=== PATIENT | female | born 1940 | race Caucasian/White ===

== ENCOUNTER → 2017-11-23 | Outpatient (CLI) | payer OTHER ==
[~2017-11-23] MED LIST: ASPI81TA27 PO; CALC-437 OR; CELE200C PO; COEN400C8 OR; SIMV40TA96 PO
[2017-11-23 11:39] LABS: Basophils # (auto) 0.1 uL; Basophils % (auto) 1.5 % (0.0-2.0); Eosinophils # (auto) 0.2 uL; Eosinophils % (auto) 4.4 % (0.0-7.0); Hematocrit 43.6 % (36.0-46.0); Hemoglobin 14.5 g/dL (12.2-16.2); Lymphocytes % (auto) 21.4 % (10.0-50.0); Mean Corpuscular Hemoglobin 31.2 pg (28.0-32.0); Mean Corpuscular Hgb Conc. 33.3 g/dL (32.0-36.0); Mean Corpuscular Volume 93.8 fL (80.0-100.0); Monocytes # (auto) 0.4 uL; Monocytes % (auto) 7.7 % (0.0-12.0); Platelet Count (auto) 272 10^3/uL (140-450); Red Blood Cells 4.65 10^6/uL (4.0-5.20); Red Cell Distribution Width 12.3 % (11.8-14.3); White Blood Cell 4.6 10^3/uL (4.4-10.8)
[2017-11-23 12:08] LABS: Albumin 3.9 g/dL (3.4-5.0); BUN/Creatinine Ratio 32.4; Bilirubin, Total 0.7 mg/dL (0.2-1.0); Calcium 9.3 mg/dL (8.5-10.1); Potassium 3.8 mmol/L (3.5-5.1); Total Protein 7.1 g/dL (6.4-8.2)
[2017-11-23 12:14] LABS: Urine Bacteria NONE SEEN /hpf (None Seen); Urine Blood Negative /uL (Negative); Urine Mucus FEW (None Seen); Urine Specific Gravity 1.029 (1.001-1.035); Urine WBC 2 /hpf (0 - 5)
== END | disposition home or self-care (01) ==
LOC: LAB 11:20
PROVIDERS: ATTEND Family Medicine
DX: E78.2 Mixed hyperlipidemia (principal); M19.90 Unspecified osteoarthritis, unspecified site
CPT/HCPCS: 36415; 80053; 80061; 81001; 82306; 82607; 84443; 85025

== ENCOUNTER → 2018-11-26 | Outpatient (CLI) | payer OTHER ==
[2018-11-26 10:18] LABS: Basophils # (auto) 0.1 uL; Basophils % (auto) 1.3 % (0.0-2.0); Eosinophils # (auto) 0.2 uL; Eosinophils % (auto) 3.4 % (0.0-7.0); Hematocrit 41.6 % (36.0-46.0); Lymphocytes # (auto) 1.2 uL; Lymphocytes % (auto) 25.9 % (10.0-50.0); Mean Corpuscular Hemoglobin 31.5 pg (28.0-32.0); Mean Corpuscular Hgb Conc. 33.7 g/dL (32.0-36.0); Mean Corpuscular Volume 93.6 fL (80.0-100.0); Monocytes # (auto) 0.5 uL; Neutrophils # (auto) 2.8 uL; Neutrophils % (auto) 59.4 % (37.0-80.0); Platelet Count (auto) 244 10^3/uL (140-450); Red Blood Cells 4.45 10^6/uL (4.0-5.20); Red Cell Distribution Width 12.8 % (11.8-14.3); White Blood Cell 4.7 10^3/uL (4.4-10.8)
[2018-11-26 10:21] LABS: Urine Bacteria NONE SEEN /hpf (None Seen); Urine Blood Negative /uL (Negative); Urine Specific Gravity 1.011 (1.001-1.035); Urine WBC <1 /hpf (0 - 5)
[2018-11-26 10:34] LABS: Albumin 3.7 g/dL (3.4-5.0); Calcium 9.2 mg/dL (8.5-10.1); Potassium 3.7 mmol/L (3.5-5.1)
[2018-11-26 10:40] LABS: BUN/Creatinine Ratio 26.7; Bilirubin, Total 0.6 mg/dL (0.2-1.0); Total Protein 6.8 g/dL (6.4-8.2)
== END | disposition home or self-care (01) ==
LOC: LAB 09:56
PROVIDERS: ATTEND Family Medicine
DX: E55.9 Vitamin D deficiency, unspecified (principal); I10 Essential (primary) hypertension; E78.2 Mixed hyperlipidemia; M17.0 Bilateral primary osteoarthritis of knee; M81.0 Age-related osteoporosis without current pathological fracture
CPT/HCPCS: 36415; 80053; 80061; 81001; 82306; 84443; 85025

== ENCOUNTER → 2020-03-18 | Outpatient (CLI) | payer OTHER ==
[~2020-03-18] MED LIST changes: +ASPI-404 PO; -ASPI81TA27 PO
[2020-03-18 11:46] LABS: Basophils # (auto) 0.1 10 ^3/uL (0-0.2); Basophils % (auto) 1.7 % (0.0-2.0); Eosinophils # (auto) 0.1 10 ^3/uL (0-0.8); Eosinophils % (auto) 2.7 % (0.0-7.0); Hematocrit 41.9 % (36.0-46.0); Lymphocytes % (auto) 19.6 % (10.0-50.0); Mean Corpuscular Hemoglobin 31.6 pg (28.0-32.0); Mean Corpuscular Hgb Conc. 33.3 g/dL (32.0-36.0); Mean Corpuscular Volume 94.9 fL (80.0-100.0); Monocytes # (auto) 0.4 10 ^3/uL (0-1.3); Monocytes % (auto) 8.2 % (0.0-12.0); Neutrophils # (auto) 3.6 10 ^3/uL (1.6-8.6); Neutrophils % (auto) 67.8 % (37.0-80.0); Nucleated Red Blood Cells % 0.1 %; Platelet Count (auto) 250 10^3/uL (140-450); Red Blood Cells 4.42 10^6/uL (4.0-5.20); Red Cell Distribution Width 12.7 % (11.8-14.3); White Blood Cell 5.3 10^3/uL (4.4-10.8)
[2020-03-18 11:59] LABS: Urine Bacteria NONE SEEN /hpf (None Seen); Urine Blood Negative /uL (Negative); Urine Hyaline Cast FEW /lpf (0 - 2); Urine Mucus FEW (None Seen); Urine Specific Gravity 1.012 (1.001-1.035); Urine WBC 4 /hpf (0 - 5)
[2020-03-18 12:52] LABS: Albumin 3.6 g/dL (3.4-5.0)
[2020-03-18 13:00] LABS: BUN/Creatinine Ratio 18.5; Bilirubin, Total 0.7 mg/dL (0.2-1.0); Calcium 9.8 mg/dL (8.5-10.1); Total Protein 7.1 g/dL (6.4-8.2)
== END | disposition home or self-care (01) ==
LOC: LAB 11:22
PROVIDERS: ATTEND Family Medicine
DX: I10 Essential (primary) hypertension (principal); E55.9 Vitamin D deficiency, unspecified; E78.2 Mixed hyperlipidemia; M85.88 Other specified disorders of bone density and structure, other site
CPT/HCPCS: 36415; 80053; 80061; 81001; 82306; 84443; 85025

== ENCOUNTER → 2021-11-02 | Outpatient (CLI) | payer OTHER ==
[~2021-11-02] MED LIST changes: -ASPI-404 PO; +ASPI-543 PO; +SIMV40TA2 PO; -SIMV40TA96 PO
[2021-11-02 11:52] LABS: Albumin 3.7 g/dL (3.4-5.0); Calcium 9.4 mg/dL (8.5-10.1); Potassium 4.2 mmol/L (3.5-5.1)
[2021-11-02 12:01] LABS: Bilirubin, Total 0.7 mg/dL (0.2-1.0); Total Protein 6.8 g/dL (6.4-8.2)
[2021-11-02 14:32] LABS: Basophils # (auto) 0.1 10 ^3/uL (0-0.2); Basophils % (auto) 1.3 % (0.0-2.0); Eosinophils # (auto) 0.1 10 ^3/uL (0-0.8); Eosinophils % (auto) 2.2 % (0.0-7.0); Hematocrit 40.1 % (36.0-46.0); Hemoglobin 13.3 g/dL (12.2-16.2); Lymphocytes % (auto) 17.8 % (10.0-50.0); Mean Corpuscular Hemoglobin 31.1 pg (28.0-32.0); Mean Corpuscular Hgb Conc. 33.3 g/dL (32.0-36.0); Mean Corpuscular Volume 93.4 fL (80.0-100.0); Monocytes # (auto) 0.5 10 ^3/uL (0-1.3); Monocytes % (auto) 8.2 % (0.0-12.0); Neutrophils # (auto) 4.1 10 ^3/uL (1.6-8.6); Neutrophils % (auto) 70.5 % (37.0-80.0); Nucleated Red Blood Cells % 0.1 %; Red Blood Cells 4.29 10^6/uL (4.0-5.20); Red Cell Distribution Width 12.3 % (11.8-14.3); White Blood Cell 5.8 10^3/uL (4.4-10.8)
== END | disposition home or self-care (01) ==
LOC: LAB 10:07
PROVIDERS: ATTEND Student in an Organized Health Care Education/Training Program
DX: Z00.00 Encounter for general adult medical examination without abnormal findings (principal); E78.2 Mixed hyperlipidemia; I10 Essential (primary) hypertension
CPT/HCPCS: 36415; 80053; 80061; 83036; 85025

== ENCOUNTER 2022-04-11 21:03 | Emergency (ER) | payer OTHER ==
[~2022-04-11] VITALS: Ht 162.6 cm; Wt 56.8 kg
[2022-04-11 21:16] VITALS: BP 150/78
[2022-04-12] MEDS ORDERED: TETANUS-DIPTH-ACEL PERTUSSIS 0.5ML SYR Tdap IM ONE (01:00)
[2022-04-12] MEDS ORDERED: LIDOCAINE 1% HCL (LOCAL ANESTH.) INJ 20ML MDV IJ ONE (01:00)
[2022-04-12] MEDS ORDERED: CEPH-509 PO (01:45)
== END 2022-04-12 01:50 | disposition home or self-care (01) ==
LOC: ER 21:03
DX: S81.812A Laceration without foreign body, left lower leg, initial encounter (principal); M19.90 Unspecified osteoarthritis, unspecified site; E78.5 Hyperlipidemia, unspecified; Z90.49 Acquired absence of other specified parts of digestive tract; Z90.89 Acquired absence of other organs; W22.8XXA Striking against or struck by other objects, initial encounter; Y93.89 Activity, other specified; Y92.89 Other specified places as the place of occurrence of the external cause; Y99.8 Other external cause status
CPT/HCPCS: 12004; 90715; 99283; J2001

== ENCOUNTER → 2022-10-12 | Outpatient (CLI) | payer OTHER ==
[~2022-10-12] MED LIST changes: +CEPH-509 PO
[2022-10-12 11:21] LABS: Basophils # (auto) 0.1 10 ^3/uL (0-0.2); Basophils % (auto) 1.3 % (0.0-2.0); Eosinophils # (auto) 0.2 10 ^3/uL (0-0.8); Eosinophils % (auto) 3.5 % (0.0-7.0); Hematocrit 42.1 % (36.0-46.0); Hemoglobin 14.4 g/dL (12.2-16.2); Lymphocytes # (auto) 1.2 10 ^3/uL (0.4-5.4); Lymphocytes % (auto) 20.1 % (10.0-50.0); Mean Corpuscular Hgb Conc. 34.2 g/dL (32.0-36.0); Mean Corpuscular Volume 93.7 fL (80.0-100.0); Monocytes # (auto) 0.6 10 ^3/uL (0-1.3); Monocytes % (auto) 9.5 % (0.0-12.0); Neutrophils # (auto) 3.9 10 ^3/uL (1.6-8.6); Neutrophils % (auto) 65.6 % (37.0-80.0); Nucleated Red Blood Cells % 0.1 %; Red Blood Cells 4.49 10^6/uL (4.0-5.20); Red Cell Distribution Width 12.5 % (11.8-14.3)
[2022-10-12 12:20] LABS: Albumin 3.6 g/dL (3.4-5.0); Calcium 9.5 mg/dL (8.5-10.1); Potassium 4.3 mmol/L (3.5-5.1)
[2022-10-12 12:25] LABS: BUN/Creatinine Ratio 26.7; Bilirubin, Total 0.5 mg/dL (0.2-1.0)
== END | disposition home or self-care (01) ==
LOC: LAB 10:55
PROVIDERS: ATTEND Student in an Organized Health Care Education/Training Program
DX: I10 Essential (primary) hypertension (principal); E78.2 Mixed hyperlipidemia; M81.0 Age-related osteoporosis without current pathological fracture
CPT/HCPCS: 36415; 80053; 80061; 85025

== ENCOUNTER 2023-05-25 11:31 | Inpatient (IN) | payer OTHER ==
[~2023-05-25] VITALS: Ht 162.6 cm; Wt 68.0 kg
[~2023-05-25 11:31] MED LIST changes: -SIMV40TA2 PO; +SIMV40TA42 PO
[2023-05-25 11:55] VITALS: PULSE 78; RESP 20; O2SAT 95
[2023-05-25] MEDS ORDERED: ONDANSETRON HCL 4 MG/2 ML VIAL IV ONE (12:15)
[2023-05-25] MEDS ORDERED: MORPHINE SULFATE 4 MG/ML SYR/VIAL IV ONE (12:15)
[2023-05-25] MEDS ORDERED: SODIUM CHLORIDE 0.9% 1,000 ML IV ONE (12:15)
[2023-05-25 14:35] LABS: Urine Bacteria NONE SEEN /hpf (None Seen); Urine Blood Negative /uL (Negative); Urine Clarity Clear (Clear); Urine Color Yellow (Yellow); Urine Hyaline Cast FEW /lpf (0 - 2); Urine Protein, UAD TRACE (Negative); Urine Specific Gravity 1.028 (1.001-1.035); Urine Urobilinogen Normal (Negative); Urine WBC <1 /hpf (0 - 5); Urine pH 5.5 (5.0-8.0)
[2023-05-25] MEDS ORDERED: AMLO1TAB22 PO (14:54)
[2023-05-25] MEDS ORDERED: ACETAMINOPHEN 325 MG TAB PO PRN (15:00)
[2023-05-25] MEDS ORDERED: LORATADINE 10 MG TAB PO ONE (15:00)
[2023-05-25] MEDS ORDERED: ONDANSETRON HCL 4 MG/2 ML VIAL IV PRN (15:00)
[2023-05-25] MEDS ORDERED: HYDROcodone-ACET 5/325MG TAB PO PRN (15:00)
[2023-05-25] MEDS: SODIUM CHLORIDE 0.9% 1,000 ML IV SCH (15:13)
[2023-05-25] MEDS: MORPHINE SULFATE INJ 2 MG/ml SYRG IV PRN (18:08)
[2023-05-25 19:30] VITALS: PULSE 82; RESP 82; O2SAT 93
[2023-05-25] MEDS ORDERED: hydrALAZINE HCL 20 MG/ML VL IV PRN (21:15)
[2023-05-25] MEDS: DOCUSATE SOD 100 MG CAP PO PRN (21:58)
[2023-05-25] MEDS: ATORVASTATIN 20 MG TAB PO SCH (21:58)
[2023-05-25 22:00] VITALS: BP 142/88; PULSE 89; RESP 19; TEMP 99.1; O2SAT 95
[2023-05-25] MEDS ORDERED: ATORVASTATIN 20 MG TAB PO SCH (22:00)
[2023-05-25 22:03] VITALS: BP 142/88; PULSE 89; RESP 18; RESP 19; TEMP 99.1; O2SAT 95
[2023-05-26] MEDS: MORPHINE SULFATE INJ 2 MG/ml SYRG IV PRN ×2 (00:56→06:56)
[2023-05-26 05:00] VITALS: BP 144/85; PULSE 92; RESP 18; TEMP 99.9; O2SAT 94
[2023-05-26] MEDS: SODIUM CHLORIDE 0.9% 1,000 ML IV SCH (07:11)
[2023-05-26 07:25] LABS: Basophils # (auto) 0 10 ^3/uL (0-0.2); Basophils % (auto) 0.3 % (0.0-2.0); Eosinophils # (auto) 0 10 ^3/uL (0-0.8); Hematocrit 37.3 % (36.0-46.0); Hemoglobin 12.5 g/dL (12.2-16.2); Lymphocytes # (auto) 0.5 10 ^3/uL (0.4-5.4); Lymphocytes % (auto) 5.7 % (10.0-50.0); Mean Corpuscular Hemoglobin 32.3 pg (28.0-32.0); Mean Corpuscular Hgb Conc. 33.6 g/dL (32.0-36.0); Mean Corpuscular Volume 96.1 fL (80.0-100.0); Monocytes # (auto) 0.7 10 ^3/uL (0-1.3); Neutrophils # (auto) 7.7 10 ^3/uL (1.6-8.6); Red Blood Cells 3.88 10^6/uL (4.0-5.20); White Blood Cell 8.9 10^3/uL (4.4-10.8)
[2023-05-26 07:42] LABS: INR 1.05 (0.9-1.15); Partial Thromboplastin Time 28.8 SEC (24.5-34.5)
[2023-05-26 08:06] LABS: Alanine Aminotransferase 364 U/L (7-40); Albumin 4.1 g/dL (3.2-4.8); Alkaline Phosphatase 73 U/L (46-116); Aspartate Aminotransferase 276 U/L (13-40); BUN/Creatinine Ratio 23.2 (10.0-20.0); Blood Urea Nitrogen 19 mg/dL (9-23); Calcium 9.5 mg/dL (8.5-10.1); Carbon Dioxide 26 mmol/L (20-30); Glucose 127 mg/dL (74-106)
[2023-05-26 08:07] LABS: Bilirubin, Total 0.9 mg/dL (0.2-1.0); Total Protein 6.6 g/dL (5.7-8.2)
[2023-05-26] MEDS ORDERED: ceFAZolin 1GM/50ML 50 ML IV ONE ×2 (08:28→10:25)
[2023-05-26] MEDS ORDERED: PROPOFOL 10 MG/ML 20 ML IV ONE (08:37)
[2023-05-26] MEDS ORDERED: DexAMETHasone SOD PHOS 10MG/1ML VIAL INJ ONE (08:38)
[2023-05-26] MEDS ORDERED: ONDANSETRON HCL 4 MG/2 ML VIAL ONE (08:38)
[2023-05-26] MEDS ORDERED: KETOROLAC TROMETH 30 MG/ML 1ML VIAL ONE (08:38)
[2023-05-26] MEDS ORDERED: LIDOCAINE 1% (LOCAL ANESTH.) PF 5ml SDV ONE (08:38)
[2023-05-26] MEDS ORDERED: GLYCOPYRROLATE 0.2 MG/ML 1ML VIAL ONE (08:38)
[2023-05-26] MEDS ORDERED: fentaNYL CITRATE 100 MCG/2 ML VL ONE (08:39)
[2023-05-26 08:45] LABS: Anion Gap 6 (5-15); Chloride 105 mmol/L (98-107); Potassium 4.3 mmol/L (3.5-5.1); Sodium 137 mmol/L (136-145)
[2023-05-26 09:00] VITALS: BP 157/93; PULSE 90; RESP 16; TEMP 98.6; O2SAT 98
[2023-05-26] MEDS: amLODIPine BESYLATE 5 MG TAB PO SCH (10:00)
[2023-05-26] MEDS ORDERED: ASPirin-EC 81 mg tab PO SCH (10:00)
[2023-05-26] MEDS: CELECOXIB 100 MG CAP PO SCH (10:00)
[2023-05-26] MEDS ORDERED: DexAMETHasone SOD PHOS 4 MG/1ML SDV INJ ONE (10:30)
[2023-05-26] MEDS: LACTATED RINGER'S 1,000 ML IV SCH ×2 (12:00→22:00)
[2023-05-26 12:14] VITALS: PULSE 74; RESP 12; O2SAT 98
[2023-05-26] MEDS ORDERED: hydrALAZINE HCL 20 MG/ML VL IV PRN (12:30)
[2023-05-26] MEDS ORDERED: fentaNYL CITRATE 100 MCG/2 ML VL IV PRN (12:30)
[2023-05-26] MEDS ORDERED: FLUMAZENIL 0.1 MG/ML INJ 10ML MDV IV PRN (12:30)
[2023-05-26] MEDS ORDERED: ePHEDrine SULFATE 50 MG/ML AMP IV PRN (12:30)
[2023-05-26] MEDS ORDERED: HYDROmorphone HCL 2 MG/ML VL/or syr IV PRN (12:30)
[2023-05-26] MEDS ORDERED: ONDANSETRON HCL 4 MG/2 ML VIAL IV PRN (12:30)
[2023-05-26] MEDS ORDERED: LABETALOL HCL 5 MG/ML 4ML SYRINGE IV PRN (12:30)
[2023-05-26] MEDS ORDERED: NALOXONE HCL 0.4 MG/ML VIAL IV PRN (12:30)
[2023-05-26 12:45] VITALS: PULSE 81; RESP 17; O2SAT 96
[2023-05-26] MEDS ORDERED: ceFAZolin 2 GM/D5W100ml 100 ML IV SCH (14:00)
[2023-05-26] MEDS: SODIUM CHLOR 0.9% PF (SALINE LOCK) 10ML VIAL/SYR IV SCH ×2 (14:00→22:00)
[2023-05-26 17:00] VITALS: BP 129/69; PULSE 104; RESP 14; TEMP 98.4; O2SAT 98
[2023-05-26] MEDS: ceFAZolin 2 GM/D5W100ml 100 ML IV SCH (20:56)
[2023-05-26] MEDS: DOCUSATE SOD 100 MG CAP PO PRN (20:56)
[2023-05-26 22:00] VITALS: BP 104/57; PULSE 85; RESP 16; TEMP 98.6; O2SAT 94
[2023-05-26] MEDS: ATORVASTATIN 20 MG TAB PO SCH (22:44)
[2023-05-27] MEDS: SODIUM CHLORIDE 0.9% 1,000 ML IV SCH ×2 (00:20→17:00)
[2023-05-27] MEDS: LORATADINE 10 MG TAB PO PRN (00:48)
[2023-05-27 05:00] VITALS: BP 125/72; PULSE 90; RESP 16; TEMP 98.8; O2SAT 93
[2023-05-27] MEDS: ceFAZolin 2 GM/D5W100ml 100 ML IV SCH (05:12)
[2023-05-27] MEDS: SODIUM CHLOR 0.9% PF (SALINE LOCK) 10ML VIAL/SYR IV SCH ×3 (05:21→22:00)
[2023-05-27 06:24] LABS: Basophils # (auto) 0 10 ^3/uL (0-0.2); Basophils % (auto) 0.1 % (0.0-2.0); Eosinophils # (auto) 0 10 ^3/uL (0-0.8); Hematocrit 26.6 % (36.0-46.0); Hemoglobin 9.1 g/dL (12.2-16.2); Lymphocytes # (auto) 0.6 10 ^3/uL (0.4-5.4); Lymphocytes % (auto) 5.4 % (10.0-50.0); Mean Corpuscular Hemoglobin 32.3 pg (28.0-32.0); Mean Corpuscular Hgb Conc. 34.4 g/dL (32.0-36.0); Mean Corpuscular Volume 93.9 fL (80.0-100.0); Monocytes # (auto) 0.8 10 ^3/uL (0-1.3); Monocytes % (auto) 6.9 % (0.0-12.0); Neutrophils # (auto) 10.4 10 ^3/uL (1.6-8.6); Neutrophils % (auto) 87.6 % (37.0-80.0); Red Blood Cells 2.83 10^6/uL (4.0-5.20); Red Cell Distribution Width 12.8 % (11.8-14.3); White Blood Cell 11.9 10^3/uL (4.4-10.8)
[2023-05-27 06:52] LABS: Alanine Aminotransferase 165 U/L (7-40); Albumin 3.3 g/dL (3.2-4.8); Alkaline Phosphatase 54 U/L (46-116); Anion Gap 5 (5-15); Aspartate Aminotransferase 77 U/L (13-40); Blood Urea Nitrogen 23 mg/dL (9-23); Calcium 9.3 mg/dL (8.7-10.4); Carbon Dioxide 25 mmol/L (20-30); Chloride 103 mmol/L (98-107); Glucose 144 mg/dL (74-106); Potassium 4.7 mmol/L (3.5-5.1); Sodium 133 mmol/L (136-145)
[2023-05-27 06:53] LABS: Bilirubin, Total 0.6 mg/dL (0.2-1.0); Total Protein 5.4 g/dL (5.7-8.2)
[2023-05-27 07:04] LABS: Bilirubin, Direct 0.2 mg/dL (<0.3)
[2023-05-27] MEDS: MORPHINE SULFATE INJ 2 MG/ml SYRG IV PRN (07:20)
[2023-05-27] MEDS: LACTATED RINGER'S 1,000 ML IV SCH ×2 (08:00→18:00)
[2023-05-27 09:16] VITALS: BP 145/72; PULSE 81; RESP 19; TEMP 98.5; O2SAT 96
[2023-05-27] MEDS: CELECOXIB 100 MG CAP PO SCH (09:31)
[2023-05-27] MEDS: ENOXAPARIN SOD 40 MG/0.4 ML SYRINGE SC SCH (09:32)
[2023-05-27] MEDS: amLODIPine BESYLATE 5 MG TAB PO SCH (09:32)
[2023-05-27] MEDS: HYDROcodone-ACET 10/325MG TAB PO PRN ×3 (09:41→21:03)
[2023-05-27 13:19] VITALS: BP 109/53; PULSE 78; RESP 19; TEMP 98.2; O2SAT 95
[2023-05-27 16:38] VITALS: BP 109/44; PULSE 75; RESP 18; TEMP 97.6; O2SAT 94
[2023-05-27] MEDS: ATORVASTATIN 20 MG TAB PO SCH (21:02)
[2023-05-27] MEDS: DOCUSATE SOD 100 MG CAP PO PRN (21:03)
[2023-05-27 22:00] VITALS: BP 110/54; PULSE 72; RESP 18; TEMP 98.4; O2SAT 93
[2023-05-28] MEDS: LACTATED RINGER'S 1,000 ML IV SCH (00:01)
[2023-05-28] MEDS: HYDROcodone-ACET 10/325MG TAB PO PRN ×4 (04:24→21:51)
[2023-05-28] MEDS: DOCUSATE SOD 100 MG CAP PO PRN ×2 (04:46→21:51)
[2023-05-28 05:00] VITALS: BP 144/58; PULSE 71; RESP 18; TEMP 98.2; O2SAT 92
[2023-05-28] MEDS: SODIUM CHLOR 0.9% PF (SALINE LOCK) 10ML VIAL/SYR IV SCH ×3 (06:00→21:52)
[2023-05-28 06:35] LABS: Alanine Aminotransferase 80 U/L (7-40); Alkaline Phosphatase 49 U/L (46-116); Anion Gap 5 (5-15); BUN/Creatinine Ratio 22.7 (10.0-20.0); Blood Urea Nitrogen 22 mg/dL (9-23); Calcium 9.3 mg/dL (8.7-10.4); Carbon Dioxide 26 mmol/L (20-30); Chloride 103 mmol/L (98-107); Glucose 104 mg/dL (74-106); Potassium 4.5 mmol/L (3.5-5.1); Sodium 134 mmol/L (136-145)
[2023-05-28 06:36] LABS: Albumin 3.3 g/dL (3.2-4.8); Aspartate Aminotransferase 40 U/L (13-40)
[2023-05-28 06:37] LABS: Bilirubin, Total 0.6 mg/dL (0.2-1.0); Total Protein 5.4 g/dL (5.7-8.2)
[2023-05-28 06:43] LABS: Basophils # (auto) 0 10 ^3/uL (0-0.2); Basophils % (auto) 0.2 % (0.0-2.0); Eosinophils # (auto) 0.1 10 ^3/uL (0-0.8); Eosinophils % (auto) 0.8 % (0.0-7.0); Hematocrit 24.3 % (36.0-46.0); Hemoglobin 8.2 g/dL (12.2-16.2); Lymphocytes % (auto) 11.3 % (10.0-50.0); Mean Corpuscular Hemoglobin 32.1 pg (28.0-32.0); Mean Corpuscular Hgb Conc. 33.9 g/dL (32.0-36.0); Mean Corpuscular Volume 94.8 fL (80.0-100.0); Monocytes % (auto) 11.8 % (0.0-12.0); Neutrophils # (auto) 6.6 10 ^3/uL (1.6-8.6); Neutrophils % (auto) 75.9 % (37.0-80.0); Red Blood Cells 2.56 10^6/uL (4.0-5.20); Red Cell Distribution Width 13.2 % (11.8-14.3); White Blood Cell 8.7 10^3/uL (4.4-10.8)
[2023-05-28 09:03] VITALS: BP 100/60; PULSE 86; RESP 17; TEMP 97.7; O2SAT 97
[2023-05-28] MEDS: ENOXAPARIN SOD 40 MG/0.4 ML SYRINGE SC SCH (09:25)
[2023-05-28] MEDS: CELECOXIB 100 MG CAP PO SCH (09:25)
[2023-05-28] MEDS: amLODIPine BESYLATE 5 MG TAB PO SCH (09:26)
[2023-05-28] MEDS: LORATADINE 10 MG TAB PO PRN (09:58)
[2023-05-28 13:00] VITALS: BP 129/58; PULSE 91; RESP 18; TEMP 98.1; O2SAT 93
[2023-05-28 17:00] VITALS: BP 120/54; PULSE 87; RESP 18; TEMP 97.7; O2SAT 91
[2023-05-28 20:00] VITALS: PULSE 84; RESP 20
[2023-05-28] MEDS: ATORVASTATIN 20 MG TAB PO SCH (21:51)
[2023-05-28 22:00] VITALS: BP 122/68; PULSE 84; RESP 16; TEMP 99.1; O2SAT 90
[2023-05-29] MEDS: HYDROcodone-ACET 10/325MG TAB PO PRN ×3 (02:53→14:49)
[2023-05-29 05:00] VITALS: BP 99/63; PULSE 77; RESP 18; TEMP 98.2; O2SAT 90
[2023-05-29] MEDS: SODIUM CHLOR 0.9% PF (SALINE LOCK) 10ML VIAL/SYR IV SCH ×2 (05:34→14:00)
[2023-05-29 08:00] VITALS: PULSE 86; RESP 18
[2023-05-29] MEDS: LORATADINE 10 MG TAB PO PRN (08:29)
[2023-05-29 09:00] VITALS: BP 124/62; PULSE 86; RESP 18; TEMP 98.8; O2SAT 91
[2023-05-29] MEDS: amLODIPine BESYLATE 5 MG TAB PO SCH (10:05)
[2023-05-29] MEDS: ENOXAPARIN SOD 40 MG/0.4 ML SYRINGE SC SCH (10:06)
[2023-05-29] MEDS: CELECOXIB 100 MG CAP PO SCH (10:06)
[2023-05-29 13:00] VITALS: BP 124/77; PULSE 98; RESP 19; TEMP 99; O2SAT 93
== END 2023-05-29 14:52 | DRG 481 ==
LOC: ER 11:31 → EDUNIT# 11:31 → OVERFLOW 14:54 → WEST WING 21:20
PROVIDERS: ADMIT Nurse Practitioner Family; ATTEND Internal Medicine Geriatric Medicine
PROC: BQ14ZZZ Fluoroscopy of Left Femur (ICD-10-PCS; 2023-05-26)
PROC: 0QS736Z Reposition Left Upper Femur with Intramedullary Internal Fixation Device, Percutaneous Approach (ICD-10-PCS; principal; 2023-05-26 10:35)
DX: S72.142A Displaced intertrochanteric fracture of left femur, initial encounter for closed fracture (principal); D62 Acute posthemorrhagic anemia; M17.0 Bilateral primary osteoarthritis of knee; E78.5 Hyperlipidemia, unspecified; I12.9 Hypertensive chronic kidney disease with stage 1 through stage 4 chronic kidney disease, or unspecified chronic kidney disease; Z60.2 Problems related to living alone; D72.829 Elevated white blood cell count, unspecified; N18.2 Chronic kidney disease, stage 2 (mild); R79.89 Other specified abnormal findings of blood chemistry; W18.39XA Other fall on same level, initial encounter; Y93.89 Activity, other specified; Z82.49 Family history of ischemic heart disease and other diseases of the circulatory system; Z83.3 Family history of diabetes mellitus; Y92.89 Other specified places as the place of occurrence of the external cause; Y99.8 Other external cause status
CPT/HCPCS: 36415; 73502; 76000; 80048; 80053; 80076; 81001; 83735; 85025; 85610; 85730; 86850; 86900; 86901; 97110; 97116; 97163; 97530; G0378; J0690; J1100; J1885; J2405; J2704

== ENCOUNTER 2023-07-19 15:52 | Emergency (ER) | payer OTHER ==
[~2023-07-19] VITALS: Ht 162.6 cm; Wt 54.5 kg
[~2023-07-19 15:52] MED LIST changes: +AMLO1TAB22 PO; -CEPH-509 PO
[2023-07-19 16:05] VITALS: BP 121/75; PULSE 110; RESP 18; TEMP 98; O2SAT 95
[2023-07-19] MEDS ORDERED: CIPR0.3S67 OP ×7 (17:20→21:19)
== END 2023-07-19 17:45 | disposition home or self-care (01) ==
LOC: ER 15:52
DX: H10.9 Unspecified conjunctivitis (principal); I10 Essential (primary) hypertension; M19.90 Unspecified osteoarthritis, unspecified site; Z90.49 Acquired absence of other specified parts of digestive tract; Z90.89 Acquired absence of other organs

== ENCOUNTER → 2024-04-01 | Outpatient (CLI) | payer OTHER ==
[~2024-04-01] MED LIST changes: +CIPR0.3S67 OP
[2024-04-01 11:33] LABS: Basophils # (auto) 0.1 10 ^3/uL (0-0.2); Basophils % (auto) 1.2 % (0.0-2.0); Eosinophils # (auto) 0.2 10 ^3/uL (0-0.8); Eosinophils % (auto) 2.3 % (0.0-7.0); Hematocrit 43.3 % (36.0-46.0); Hemoglobin 14.6 g/dL (12.2-16.2); Lymphocytes # (auto) 1.8 10 ^3/uL (0.4-5.4); Lymphocytes % (auto) 25.6 % (10.0-50.0); Mean Corpuscular Hemoglobin 32.3 pg (28.0-32.0); Mean Corpuscular Hgb Conc. 33.7 g/dL (32.0-36.0); Monocytes # (auto) 0.6 10 ^3/uL (0-1.3); Monocytes % (auto) 8.2 % (0.0-12.0); Neutrophils # (auto) 4.3 10 ^3/uL (1.6-8.6); Neutrophils % (auto) 62.7 % (37.0-80.0); Red Blood Cells 4.52 10^6/uL (4.0-5.20); Red Cell Distribution Width 12.5 % (11.8-14.3); White Blood Cell 6.9 10^3/uL (4.4-10.8)
[2024-04-01 12:52] LABS: Alanine Aminotransferase 24 U/L (7-40); Albumin 4.4 g/dL (3.2-4.8); Alkaline Phosphatase 68 U/L (46-116); Anion Gap 5 (5-15); Aspartate Aminotransferase 24 U/L (13-40); BUN/Creatinine Ratio 23.5 (10.0-20.0); Blood Urea Nitrogen 23 mg/dL (9-23); Calcium 10.6 mg/dL (8.7-10.4); Carbon Dioxide 29 mmol/L (20-30); Chloride 106 mmol/L (98-107); Glucose 92 mg/dL (74-106); LDL Cholesterol 88 mg/dL (< 100); Potassium 4.6 mmol/L (3.5-5.1); Sodium 140 mmol/L (136-145); Triglycerides 94 mg/dL (< 150)
[2024-04-01 12:53] LABS: Bilirubin, Total 0.7 mg/dL (0.2-1.0); Cholesterol 156 mg/dL (< 200); HDL Cholesterol 57 mg/dL (40-59); Total Protein 6.9 g/dL (5.7-8.2)
== END | disposition home or self-care (01) ==
LOC: LAB 11:12
PROVIDERS: ATTEND Student in an Organized Health Care Education/Training Program
DX: Z00.00 Encounter for general adult medical examination without abnormal findings (principal); M17.11 Unilateral primary osteoarthritis, right knee
CPT/HCPCS: 36415; 80053; 80061; 85025

== ENCOUNTER → 2025-01-06 | Outpatient (CLI) | payer OTHER ==
[2025-01-06 11:02] LABS: Urine Bacteria FEW /hpf (None Seen); Urine Blood Negative /uL (Negative); Urine Budding Yeast OCCASIONAL /hpf (None Seen); Urine Clarity Turbid (Clear); Urine Color Yellow (Yellow); Urine Mucus FEW (None Seen); Urine Protein, UAD TRACE (Negative); Urine Squamous Epithelial Cell FEW /hpf (<5); Urine Urobilinogen Normal (Negative); Urine WBC 130 /HPF (0-5); Urine pH 5.5 (5.0-9.0)
[2025-01-06 11:12] LABS: Basophils # (auto) 0.1 10 ^3/uL (0-0.2); Basophils % (auto) 0.9 % (0.0-2.0); Eosinophils # (auto) 0.2 10 ^3/uL (0-0.8); Eosinophils % (auto) 2.8 % (0.0-7.0); Hematocrit 44.1 % (36.0-46.0); Hemoglobin 14.8 g/dL (12.2-16.2); Lymphocytes # (auto) 1.9 10 ^3/uL (0.4-5.4); Lymphocytes % (auto) 29.6 % (10.0-50.0); Mean Corpuscular Hemoglobin 31.8 pg (28.0-32.0); Mean Corpuscular Hgb Conc. 33.5 g/dL (32.0-36.0); Mean Corpuscular Volume 94.9 fL (80.0-100.0); Monocytes # (auto) 0.6 10 ^3/uL (0-1.3); Monocytes % (auto) 9.2 % (0.0-12.0); Neutrophils # (auto) 3.7 10 ^3/uL (1.6-8.6); Neutrophils % (auto) 57.5 % (37.0-80.0); Nucleated Red Blood Cells % 0.2 %; Platelet Count (auto) 286 10^3/uL (140-450); Red Blood Cells 4.65 10^6/uL (4.0-5.20); Red Cell Distribution Width 12.7 % (11.8-14.3); White Blood Cell 6.4 10^3/uL (4.4-10.8)
[2025-01-06 11:21] LABS: INR 1.02 (0.9-1.15); Partial Thromboplastin Time 26.1 SEC (24.5-34.5); Prothrombin Time 10.8 sec (9.3-11.8)
[2025-01-06 11:28] LABS: Alanine Aminotransferase 16 U/L (7-40); Albumin 4.5 g/dL (3.2-4.8); Alkaline Phosphatase 67 U/L (46-116); Anion Gap 9 (5-15); Aspartate Aminotransferase 18 U/L (13-40); BUN/Creatinine Ratio 29.4 (10.0-20.0); Carbon Dioxide 27 mmol/L (20-31); Chloride 106 mmol/L (98-107); Glucose 92 mg/dL (74-106); Potassium 4.5 mmol/L (3.5-5.1); Sodium 142 mmol/L (136-145); Total Protein 7.1 g/dL (5.7-8.2)
[2025-01-06 11:29] LABS: Bilirubin, Total 0.7 mg/dL (0.2-1.0)
[2025-01-06 11:46] LABS: Blood Urea Nitrogen 30 mg/dL (9-23); Calcium 10.9 mg/dL (8.7-10.4)
== END | disposition home or self-care (01) ==
LOC: LAB 10:19
PROVIDERS: ATTEND Nurse Practitioner
DX: Z01.812 Encounter for preprocedural laboratory examination (principal); M17.11 Unilateral primary osteoarthritis, right knee
CPT/HCPCS: 36415; 80053; 81001; 85025; 85610; 85730

== ENCOUNTER 2025-01-14 08:11 | Inpatient (IN) | payer OTHER ==
[~2025-01-14] VITALS: Ht 154.9 cm; Wt 65.0 kg
[~2025-01-14 08:11] MED LIST changes: -ASPI-543 PO; -CALC-437 OR; -CIPR0.3S67 OP; -COEN400C8 OR
[2025-01-14] MEDS ORDERED: GLYCOPYRROLATE 0.2 MG/ML 1ML VIAL ONE (09:23)
[2025-01-14] MEDS ORDERED: ONDANSETRON HCL 4 MG/2 ML VIAL ONE (09:23)
[2025-01-14] MEDS ORDERED: LIDOCAINE 1% INJ PF 5ML AMP ONE (09:23)
[2025-01-14] MEDS ORDERED: PROPOFOL 10 MG/ML 20 ML IV ONE (09:23)
[2025-01-14] MEDS ORDERED: KETOROLAC TROMETH 30 MG/ML 1ML VIAL ONE (09:23)
[2025-01-14] MEDS ORDERED: DexAMETHasone SOD PHOS 10MG/1ML VIAL INJ ONE (09:23)
[2025-01-14] MEDS ORDERED: KETAMINE 50mg/ML 1ml syringe ONE (09:24)
[2025-01-14] MEDS ORDERED: fentaNYL CITRATE 100 MCG/2 ML VL ONE (09:24)
[2025-01-14] MEDS: GABAPENTIN 300 MG CAP PO ONE (10:20)
[2025-01-14] MEDS: CELECOXIB 100 MG CAP PO ONE (10:20)
[2025-01-14] MEDS: ACETAMINOPHEN IV 1000 MG/100ML (10MG/ML) IV ONE (10:20)
[2025-01-14] MEDS: ceFAZolin 2 GM/D5W50ml 50 ML IV ONE (10:34)
[2025-01-14] MEDS: CEFEPIME 1GM/ 50ML 50 ML IV ONE (10:34)
[2025-01-14] MEDS ORDERED: SODIUM CHLORIDE LOCK 10 ML ONE ×2 (10:53→12:04)
[2025-01-14] MEDS ORDERED: ePHEDrine SULFATE 50 MG/ML AMP ONE (11:22)
[2025-01-14] MEDS: VANCOMYCIN HCL 1000 MG VL ONE (12:13)
[2025-01-14 12:30] VITALS: PULSE 97; RESP 12; O2SAT 99
[2025-01-14] MEDS ORDERED: NALOXONE HCL 0.4 MG/ML VIAL IV PRN (12:45)
[2025-01-14] MEDS ORDERED: ONDANSETRON HCL 4 MG/2 ML VIAL IV PRN ×2 (12:45→13:15)
[2025-01-14] MEDS ORDERED: hydrALAZINE HCL 20 MG/ML VL IV PRN (12:45)
[2025-01-14] MEDS ORDERED: FLUMAZENIL 0.1 MG/ML INJ 10ML MDV IV PRN (12:45)
[2025-01-14] MEDS ORDERED: ePHEDrine SULFATE 50 MG/ML AMP IV PRN (12:45)
[2025-01-14] MEDS ORDERED: fentaNYL CITRATE 100 MCG/2 ML VL IV PRN (12:45)
[2025-01-14] MEDS ORDERED: HYDROmorphone HCL 2 MG/ML VL/or syr IV PRN (12:45)
--- NOTE | 2025-01-14 13:10 | DVHOP2 ---
Operative Report - 2 Report Details Date: 01/14/25 Preop Diagnosis: right knee osteoarthritis, endstage, three compartment Postop Diagnosis: same Surgeon: Robin Christian MD Mastic Worker: Rufus Anesthesiologist: Dr Choudhary Anesthesia: Regional Drains: none Implant: Roger TKA PS femur 4, tibia 4, poly 14, patella 32 Consent: The patient was informed of the risks and benefits of the procedure. These include but are not limited to complications of anesthesia, postoperative infection, incomplete relief of symptoms, recurrence of symptoms, damage to blood vessels, nerves and tendons, deep venous thrombosis, pulmonary embolism and possible need for repeat surgery in the future. Complications: none Estimated Blood Loss: 100 cc Fluids: 1 L crystalloid Findings: above Indications for Surgery: right knee endstage arthritis, preventing ADLs, non responsive to conservative care Name of Procedure Performed RIGHT total knee arthroplasty Procedure Details Procedure Details: Patient brought to the operating room give given Ancef 1 g IV piggyback preoperatively TXA 1 g IV piggyback preoperatively sterile prep and drape right lower extremity after receiving nonsterile tourniquet right thigh also spinal anesthetic Dr. Choudhary without complication and femoral nerve block postoperatively without complication also Dr. Choudhary time-out performed comprehension right-sided correct site total knee arthroplasty correct procedure after review of operative consent history and physical my initials on right knee exsanguination with Esmarch tourniquet elevated to 300 mm of mercury total tourniquet time 40 minutes longitudinal incision made from 5 mm suprapatellar Gwendolyn 5 cm suprapatellar two 5 cm infrapatellar sharp dissection through skin down to deep fascia medial parapatellar incision made knee knee patella everted knee hyperflexed sharp excision of suprapatellar fat infrapatellar fat ACL PCL medial meniscus lateral meniscus Reamer used to gain access to intramedullary canal of femur distal femoral resection guide placed over guide li set for 5 degree valgus 8 mm resection distal femoral cut made posterior femoral condylar referencing guide then tapped into place and Felix Agarwal showed size four to be appropriate size size four four in one cutting block then tapped into place and distal femoral cuts made intercondylar notch cutting guide then tapped into place and intercondylar notch cuts made retractors placed medial lateral and posterior to tibial plateau reaming to gain access to intramedullary canal and then placement of intramedullary li with proximal tibial resection guide 2 mm stylus for resection 2 mm from lower medial side proximal tibial cut made size four seemed to be appropriate size soft tissue balancing performed balancing flexion and extension medial to lateral trial performed with size four femur size four tibia 14 mm poly with excellent range of motion 0-130 excellent stab ility varus valgus throughout range of motion excellent patellar tracking rotation of the tibial component marked tibial plate pinned into place and keel punch used and the patellar surface then prepared showing size 32 to be appropriate size proximal patella resection guide then set for 10 mm resection 10 mm of articular surface of patella were resected then patellar button reaming performed tourniquet then let down excellent hemostasis noted in the knee and no evidence of residual loose bodies osteophytes or meniscus material knee then packed with lap sponges re-exsanguinated with Esmarch and tourniquet elevated to 300 mm of mercury pulsatile lavage bony surfaces cementing of true components into place size four posterior stabilized femur Alfred size four tibia of for teen by four poly 32 patella range of motion stability then assessed showing excellent range of motion 0-130 excellent stability varus valgus throughout range of motion and excellent patellar tracking tourniquet let down again showing excellent hemostasis excess cement removed osteophytes were removed pulsatile lavage of knee placement of vancomycin powder into medial and lateral gutters closure deep fascia simple interrupted 0 Vicryl suture subcutaneous 2-0 Vicryl suture after further vancomycin powder irena for skin fluffs ABD loose Gomez wrap knee immobilizer no drains specimens complications thank you much Specimen: none Condition Stable Disposition Still a Patient ROBIN CHRISTIAN MD January 14, 2025 13:10
[2025-01-14] MEDS ORDERED: NITROGLYCERIN 0.4 MG SL TAB SL PRN (13:15)
[2025-01-14] MEDS: TRANEXAMIC ACID 20 ML ONE (13:20)
[2025-01-14] MEDS: CELECOXIB 100 MG CAP ONE (13:21)
[2025-01-14] MEDS: GABAPENTIN 300 MG CAP ONE (13:21)
[2025-01-14] MEDS: ACETAMINOPHEN IV 100 ML IV ONE (13:21)
[2025-01-14] MEDS: oxyCODONE HCL 5MG TAB PO PRN (13:22)
--- NOTE | 2025-01-14 13:53 | DVH ---
CLINICAL INDICATION: S/P SURGERY TECHNIQUE: XY R KNEE 3V XRAY Comparison: None FINDINGS/IMPRESSION: : Expected findings post right knee arthroplasty.
[2025-01-14 14:36] VITALS: BP 141/43; PULSE 91; RESP 16; TEMP 97.1; O2SAT 95
[2025-01-14] MEDS: LACTATED RINGER'S 1,000 ML IV SCH (15:23)
[2025-01-14] MEDS: ceFAZolin 1GM/50ML 50 ML IV SCH (15:25)
[2025-01-14 15:34] VITALS: PULSE 104; RESP 18; O2SAT 94
[2025-01-14 16:00] VITALS: BP_SYST 132; BP_SYST 141; BP_DIAS 42; BP_DIAS 72; PULSE 91; PULSE 95; RESP 16; RESP 17; TEMP 97.1; TEMP 97.2; O2SAT 95
[2025-01-14] MEDS: CLINDAMYCIN 600MG IV 50 ML IV SCH (18:36)
[2025-01-14 20:00] VITALS: PULSE 107
[2025-01-14 20:59] VITALS: BP 96/60; PULSE 96; RESP 16; TEMP 97.4; O2SAT 92
[2025-01-15] VITALS (7 sets, daily range): BP systolic 90–136; BP diastolic 55–85; PULSE 83–104; RESP 16–18; TEMP 97.7–98.5; O2SAT 90–95
[2025-01-15 07:34] LABS: Hematocrit 31.9 % (36.0-46.0); Hemoglobin 10.7 g/dL (12.2-16.2)
[2025-01-15] MEDS: ENOXAPARIN SOD 30 MG/0.3 ML SYRINGE SC SCH (09:28)
[2025-01-15] MEDS: ACETAMINOPHEN 325 MG TAB PO PRN (09:29)
--- NOTE | 2025-01-15 10:17 | DVHPN2 ---
Date of Progress Note Date of Progress Note Date of Progress Note: 01/15/25 Date of Admission Date of Admission Date of Admission: Date of Admission: January 14, 2025 at 13:10 Overnight Events Overnight events Overnight Events Pt tolerate pain on po meds Family History Family History Family History: Cancer Family history: Arthritis Family history: Cardiovascular disease Family history: Diabetes mellitus Allergies: Coded Allergies: NO KNOWN ALLERGIES (Verified , 10/21/15) Home Meds Reported Medications Amlodipine Besylate (Amlodipine Besylate) 5 Mg Tab, 1 TAB PO DAILY 05/25/23 Celecoxib (Celebrex) 200 Mg Cap, 200 MG PO DAILY, CAP 07/16/14 Simvastatin (Zocor) 40 Mg Tab, 40 MG PO HS, TAB 07/16/14 Current Medications Current Medications Medications (Trade) Dose Ordered Sig/Arpan Route PRN Reason Start Time Stop Time Status Last Admin Ondansetron HCl (Zofran) 4 mg ONCE PRN IV NAUSEA / VOMITING 01/14/25 12:45 01/14/25 12:59 DC Naloxone HCl (Narcan) 0.4 mg Q10M PRN IV NARCOTIC REVERSAL 01/14/25 12:45 01/14/25 13:07 DC Flumazenil (Romazicon Injection) 0.2 mg ONCE PRN IV BENZODIAZEPINE REVERSAL 01/14/25 12:45 01/14/25 12:59 DC Hydralazine HCl (Apresoline Injection) 5 mg Q10M PRN IV SBP>160 01/14/25 12:45 01/14/25 13:36 DC Ephedrine Sulfate (ePHEDrine SULFATE) 10 mg Q10M PRN IV SBP LESS THAN 90 01/14/25 12:45 01/14/25 13:26 DC Fentanyl Citrate 25 mcg Q1HP PRN IV BREAKTHROUGH PAIN (7-10) 01/14/25 12:45 01/14/25 18:00 DC Hydromorphone HCl (Dilaudid Injection) 0.5 mg Q10M PRN IV SEVERE PAIN (7-10 PAIN SCALE) 01/14/25 12:45 01/14/25 18:00 DC Oxycodone HCl 10 mg ONCE PRN PO MODERATE PAIN (4-6 PAIN SCALE) 01/14/25 12:45 01/14/25 18:00 DC 01/14/25 13:22 Lactated Ringer's 1,000 ml @ 100 mls/hr Q10H IV 01/14/25 13:15 01/14/25 23:17 Cefazolin Sodium 50 ml @ 50 mls/hr Q6H IV 01/14/25 13:15 01/15/25 02:14 DC 01/15/25 00:15 Clindamycin Phosphate 50 ml @ 50 mls/hr Q6HR IV 01/14/25 18:00 01/15/25 06:59 DC 01/15/25 05:35 Acetaminophen (Tylenol Tablet) 650 mg Q6HP PRN PO MILD PAIN OR TEMP >101 01/14/25 13:15 01/15/25 09:29 Ondansetron HCl (Zofran) 4 mg Q6HP PRN IV NAUSEA / VOMITING 01/14/25 13:15 Enoxaparin Sodium (Lovenox) 30 mg Q12HR SC 01/15/25 10:00 01/15/25 09:28 Nitroglycerin (Ntrostat Sublingual) 0.4 mg Q5MINP PRN SL FOR CHEST PAIN 01/14/25 13:15 Physical Examination General Examination: Last Vital sign Vital Signs Date Time Temp Pulse Resp B/P (MAP) Pulse Ox O2 Delivery O2 Flow Rate FiO2 01/15/25 09:29 97.7 01/15/25 09:00 88 18 90/55 (67) 90 01/15/25 08:00 Room Air* 0 21 General: General: No apparent distress, appears comfortable. Cooperative. Extremities: Right knee no drainage, NVI, minimal swelling Neurological Examination: Neurological Examination: Mental Status: Cranial Nerves: Motor Examination: Reflexes: Sensory: Coordination: Gait: NVI Labs: Labs: Laboratory Tests Test 01/14/25 18:33 01/15/25 06:22 Range/Units Hepatitis B Surface Antigen Pending Hepatitis C Antibody Pending Hemoglobin 10.7 L 12.2-16.2 g/dL Hematocrit 31.9 L 36.0-46.0 % Imaging Imagin01/14/25 XR right knee, TKA, well aligned, no fracture, no loosening Assessment/Plan Assessment/Plan Assessment and Plan:Lillie Garcia is a 84 year old female POD 1 s/p RIGHT TKA 1) dc sanabria, I/O cath q6 prn 2) PT 3) dry dressing change Plan discussed with: Patient ROBIN CHRISTIAN MD January 15, 2025 10:17
[2025-01-15] MEDS: HYDROcodone-ACET 10/325MG TAB PO PRN (11:07)
--- NOTE | 2025-01-15 15:42 | DVHHP2 ---
Review of Systems Allergies: Coded Allergies: NO KNOWN ALLERGIES (Verified , 10/21/15) Medications Current Medications Medications Dose Ordered Sig/Arpan Route Start Time Stop Time Status Last Admin Dose Admin Lactated Ringer's 1,000 ml @ 100 mls/hr Q10H IV 01/14/25 13:15 01/14/25 23:17 100 MLS/HR Acetaminophen 650 mg Q6HP PRN PO 01/14/25 13:15 01/15/25 09:29 650 MG Ondansetron HCl 4 mg Q6HP PRN IV 01/14/25 13:15 Enoxaparin Sodium 30 mg Q12HR SC 01/15/25 10:00 01/15/25 09:28 30 MG Nitroglycerin 0.4 mg Q5MINP PRN SL 01/14/25 13:15 Acetaminophen/ Hydrocodone Bitart 1 tab Q6HPRN PRN PO 01/15/25 10:30 01/15/25 11:07 1 TAB Morphine Sulfate 2 mg Q4HPRN PRN IV 01/15/25 10:30 Exam Vital Signs Vital Signs Date Time Temp Pulse Resp B/P (MAP) Pulse Ox O2 Delivery O2 Flow Rate FiO2 01/15/25 13:00 98.2 95 18 135/69 (91) 95 98.2 01/15/25 08:00 Room Air* 0 21 Labs/Xrays Labs Test 01/15/25 06:22 01/14/25 18:33 Range/Units Hemoglobin 10.7 L 12.2-16.2 g/dL Hematocrit 31.9 L 36.0-46.0 % Assessment/Plan Assessment/Plan see dictated note Plan discussed with: Patient My Orders Orders - MARIE TRINH MD Procedure Category Date Status Time * Circuit Board Inspector CONS 01/15/25 Transmitted Consult Urinalysis LAB 01/15/25 Uncollected 15:29 Complete Blood Count LAB 01/16/25 Verified 06:00 Comprehensive LAB 01/16/25 Verified Metabolic Panel 06:00 Date of Service: January 15, 2025 Billing Provider: MARIE TRINH MD Common Visit Codes: [id number] INP/OBS CARE (HIGH) Secondary Visit Codes: [id number] CARE PLAN 30 MINUTES MARIE TRINH MD January 15, 2025 15:42
--- NOTE | 2025-01-15 15:54 | DVHHP ---
ADMIT DATE: 01/14/2025 HISTORY OF PRESENT ILLNESS: The patient is an 84-year-old lady, who had surgery on the right knee for DJD of the knee. The patient at this time denies any significant pain. No chest pain, shortness of breath, nausea, or vomiting. REVIEW OF SYSTEMS: Review of rest of systems otherwise currently negative. PAST MEDICAL HISTORY: Significant for hypertension and hyperlipidemia. MEDICATIONS: She takes amlodipine and simvastatin. ALLERGIES: No known drug allergies. SOCIAL HISTORY: Denies smoking or alcohol, lives alone. FAMILY HISTORY: Negative. PHYSICAL EXAMINATION: GENERAL: The patient is awake and alert. VITAL SIGNS: Temperature of 98.2, pulse 95 per minute, blood pressure 135/69. SHEENT: Unremarkable. NECK: There is no JVD. No pedal edema. LUNGS: Equal bilaterally. No added sounds. CARDIOVASCULAR: S1, S2 is regular without murmurs. ABDOMEN: Soft. There is no organomegaly. NEUROLOGIC: Nonfocal. MUSCULOSKELETAL: The right knee is currently in the dressing. ASSESSMENT AND PLAN: * Hypertension for which the patient's blood pressure should be monitored. * Hyperlipidemia. * Status post right knee surgery for DJD of the knee. The patient will receive physical therapy and pain medications. Advanced care planning. The patient is a full code-Time spent was 19 minutes. MD SANCHO Schmidt/TITUS TID: [id number] RECEIPT: [id number] MTDD
[2025-01-15 21:45] LABS: Urine Bacteria None Seen /hpf (None Seen)
[2025-01-15 21:57] LABS: Urine Blood Negative /uL (Negative); Urine Clarity Clear (Clear); Urine Color Light-Yellow (Yellow); Urine Protein, UAD Negative (Negative); Urine Specific Gravity 1.009 (1.001-1.035); Urine Squamous Epithelial Cell FEW /hpf (<5); Urine Urobilinogen Normal (Negative); Urine WBC 1 /HPF (0-5); Urine pH 5.5 (5.0-9.0)
[2025-01-15] MEDS: MORPHINE SULFATE INJ 2 MG/ml SYRG IV PRN (22:47)
[2025-01-16] VITALS (8 sets, daily range): BP systolic 109–137; BP diastolic 60–90; PULSE 65–112; RESP 16–20; TEMP 97–100.1; O2SAT 90–99
[2025-01-16 07:11] LABS: Alkaline Phosphatase 49 U/L (46-116); Anion Gap 7 (5-15); BUN/Creatinine Ratio 20.5 (10.0-20.0); Blood Urea Nitrogen 16 mg/dL (9-23); Calcium 9.2 mg/dL (8.7-10.4); Carbon Dioxide 28 mmol/L (20-31); Chloride 103 mmol/L (98-107); Glucose 90 mg/dL (74-106); Potassium 4.3 mmol/L (3.5-5.1); Sodium 138 mmol/L (136-145)
[2025-01-16 07:12] LABS: Albumin 3.6 g/dL (3.2-4.8); Aspartate Aminotransferase 22 U/L (13-40); Basophils # (auto) 0 10 ^3/uL (0-0.2); Basophils % (auto) 0.5 % (0.0-2.0); Eosinophils # (auto) 0.1 10 ^3/uL (0-0.8); Eosinophils % (auto) 1.4 % (0.0-7.0); Hematocrit 31.9 % (36.0-46.0); Hemoglobin 10.8 g/dL (12.2-16.2); Lymphocytes # (auto) 0.9 10 ^3/uL (0.4-5.4); Lymphocytes % (auto) 11.6 % (10.0-50.0); Mean Corpuscular Hemoglobin 31.8 pg (28.0-32.0); Mean Corpuscular Hgb Conc. 33.7 g/dL (32.0-36.0); Mean Corpuscular Volume 94.3 fL (80.0-100.0); Monocytes % (auto) 12.6 % (0.0-12.0); Neutrophils # (auto) 5.8 10 ^3/uL (1.6-8.6); Neutrophils % (auto) 73.9 % (37.0-80.0); Platelet Count (auto) 179 10^3/uL (140-450); Red Blood Cells 3.38 10^6/uL (4.0-5.20); Red Cell Distribution Width 12.6 % (11.8-14.3); White Blood Cell 7.8 10^3/uL (4.4-10.8)
[2025-01-16 07:13] LABS: Bilirubin, Total 0.5 mg/dL (0.2-1.0)
[2025-01-16 07:15] LABS: Alanine Aminotransferase < 9 U/L (7-40); Total Protein 5.5 g/dL (5.7-8.2)
[2025-01-16 10:24] LABS: Hepatitis B Surface Antigen Negative (Negative); Hepatitis C Antibody Negative (Negative)
--- NOTE | 2025-01-16 19:53 | DVHPN2 ---
Subjective No complaints Changes from previous H/P or p: Changes Objective Vitals Vital Signs Date Time Temp Pulse Resp B/P (MAP) Pulse Ox O2 Delivery O2 Flow Rate FiO2 01/16/25 17:08 99.1 93 18 118/71 (87) 97 99.1 01/16/25 08:00 Room Air* 0 21 Intake/Output Intake and Output 01/16/25 07:00 Intake Total 1000 ml Balance 1000 ml Intake Oral 1000 ml # Voids 6 # Bowel Movements 1 General Appearance: Alert, Oriented X3, Cooperative Medications Current Medications Medications Dose Ordered Sig/Arpan Route Start Time Stop Time Status Last Admin Dose Admin Lactated Ringer's 1,000 ml @ 100 mls/hr Q10H IV 01/14/25 13:15 01/14/25 23:17 100 MLS/HR Acetaminophen 650 mg Q6HP PRN PO 01/14/25 13:15 01/16/25 10:06 650 MG Ondansetron HCl 4 mg Q6HP PRN IV 01/14/25 13:15 Enoxaparin Sodium 30 mg Q12HR SC 01/15/25 10:00 01/16/25 09:42 30 MG Nitroglycerin 0.4 mg Q5MINP PRN SL 01/14/25 13:15 Acetaminophen/ Hydrocodone Bitart 1 tab Q6HPRN PRN PO 01/15/25 10:30 01/16/25 17:14 1 TAB Morphine Sulfate 2 mg Q4HPRN PRN IV 01/15/25 10:30 01/16/25 09:33 2 MG Laboratory Results Laboratory Tests 01/16/25 05:44 Chemistry Test 01/16/25 05:44 Albumin 3.6 g/dL (3.2-4.8) Calcium Level 9.2 mg/dL (8.7-10.4) Total Protein 5.5 g/dL (5.7-8.2) L LFT Test 01/16/25 05:44 Alanine Aminotransferase (ALT) < 9 U/L (7-40) Alkaline Phosphatase 49 U/L (46-116) Aspartate Amino Transferase (AST) 22 U/L (13-40) Total Bilirubin 0.5 mg/dL (0.2-1.0) Urinalysis Test 01/15/25 20:52 Urine Color Light-yellow (Yellow) Urine Clarity Clear (Clear) Urine pH 5.5 (5.0-9.0) Urine Specific [place] 1.009 (1.001-1.035) Urine Protein Negative (Negative) Urine Ketones Negative (Negative) Urine Blood Negative /uL (Negative) Urine Nitrite Negative (Negative) Urine Bilirubin Negative (Negative) Urine Urobilinogen Normal mg/dL (Negative) Urine Leukocyte Esterase Negative /uL (Negative) Urine RBC <1 /hpf (0 - 4) Urine Microscopic WBC 1 /HPF (0-5) Urine Squamous Epithelial Cells Few /hpf (<5) Urine Bacteria None seen /hpf (None Seen) Urine Glucose Normal mg/dL (Normal) Assessment/Plan Assessment/Plan s/p R knee replacement HTN Mixed hyperlipidemia PLAN: Order [facility] Home health PT DC planning for tomorrow Plan discussed with: Patient My Orders Orders - BRITTANY QURESHI MD Procedure Category Date Status Time * Bituminous Distributor Operator CONS 01/16/25 Transmitted Consult Date of Service: January 16, 2025 Billing Provider: BRITTANY QURESHI MD Common Visit Codes: [id number] INP/OBS CARE(HIGH) BRITTANY QURESHI MD January 16, 2025 19:53
[2025-01-17 05:00] VITALS: BP 102/66; PULSE 102; RESP 17; TEMP 97.6; O2SAT 90
[2025-01-17 06:15] LABS: Hemoglobin 10.4 g/dL (12.2-16.2)
[2025-01-17 09:00] VITALS: BP 106/57; PULSE 90; RESP 16; TEMP 98.6; O2SAT 92
[2025-01-17 13:00] VITALS: BP 100/48; PULSE 88; RESP 16; TEMP 99.1; O2SAT 90
[2025-01-17] MEDS ORDERED: HYDR-4902 PO (15:04)
--- NOTE | 2025-01-17 15:09 | DVHDS2 ---
Discharge Summary Date of Admission January 14, 2025 at 13:10 Date of Discharge: January 17, 2025 Labs/Diagnostic Data: Laboratory Results Test 01/17/25 05:19 01/16/25 05:44 01/15/25 20:52 01/14/25 18:33 Hemoglobin 10.4 g/dL (12.2-16.2) Hematocrit 31.0 % (36.0-46.0) White Blood Count 7.8 10^3/uL (4.4-10.8) Red Blood Count 3.38 10^6/uL (4.0-5.20) Mean Corpuscular Volume 94.3 fL (80.0-100.0) Mean Corpuscular Hemoglobin 31.8 pg (28.0-32.0) Mean Corpuscular Hemoglobin Concent 33.7 g/dL (32.0-36.0) Red Cell Distribution Width 12.6 % (11.8-14.3) Platelet Count 179 10^3/uL (140-450) Mean Platelet Volume 7.5 fL (6.9-10.8) Neutrophils (%) (Auto) 73.9 % (37.0-80.0) Lymphocytes (%) (Auto) 11.6 % (10.0-50.0) Monocytes (%) (Auto) 12.6 % (0.0-12.0) Eosinophils (%) (Auto) 1.4 % (0.0-7.0) Basophils (%) (Auto) 0.5 % (0.0-2.0) Neutrophils # (Auto) 5.8 10 ^3/uL (1.6-8.6) Lymphocytes # (Auto) 0.9 10 ^3/uL (0.4-5.4) Monocytes # (Auto) 1.0 10 ^3/uL (0-1.3) Eosinophils # (Auto) 0.1 10 ^3/uL (0-0.8) Basophils # (Auto) 0 10 ^3/uL (0-0.2) Nucleated Red Blood Cells 0.0 % Sodium Level 138 mmol/L (136-145) Potassium Level 4.3 mmol/L (3.5-5.1) Chloride Level 103 mmol/L (98-107) Carbon Dioxide Level 28 mmol/L (20-31) Anion Gap 7 (5-15) Blood Urea Nitrogen 16 mg/dL (9-23) Creatinine 0.78 mg/dL (0.550-1.02) Glomerular Filtration Rate Calc 75 mL/min (>90) BUN/Creatinine Ratio 20.5 (10.0-20.0) Serum Glucose 90 mg/dL (74-106) Calcium Level 9.2 mg/dL (8.7-10.4) Total Bilirubin 0.5 mg/dL (0.2-1.0) Aspartate Amino Transferase (AST) 22 U/L (13-40) Alanine Aminotransferase (ALT) < 9 U/L (7-40) Alkaline Phosphatase 49 U/L (46-116) Total Protein 5.5 g/dL (5.7-8.2) Albumin 3.6 g/dL (3.2-4.8) Urine Color Light-yellow (Yellow) Urine Clarity Clear (Clear) Urine pH 5.5 (5.0-9.0) Urine Specific [place] 1.009 (1.001-1.035) Urine Protein Negative (Negative) Urine Ketones Negative (Negative) Urine Blood Negative /uL (Negative) Urine Nitrite Negative (Negative) Urine Bilirubin Negative (Negative) Urine Urobilinogen Normal mg/dL (Negative) Urine Leukocyte Esterase Negative /uL (Negative) Urine RBC <1 /hpf (0 - 4) Urine Microscopic WBC 1 /HPF (0-5) Urine Squamous Epithelial Cells Few /hpf (<5) Urine Bacteria None seen /hpf (None Seen) Urine Glucose Normal mg/dL (Normal) Hepatitis B Surface Antigen Negative (Negative) Hepatitis C Antibody Negative (Negative) Other Laboratory Tests 01/17/25 05:19 01/16/25 05:44 Brief Hx & Hospital Course: Final diagnoses: s/p R knee replacement HTN Mixed hyperlipidemia 84-year-old female had an elective knee replacement and following that had she did very well, she is ambulating with physical therapy Her pain is well controlled The plan is for her to go home with home health Front wheel walker and a bedside commode were ordered Discharge the patient home and follow up with Orthopedic surgery in 1-2 weeks Castillo was sent to her pharmacy Stable for discharge Condition at Discharge: Stable Final Diagnosis/Problems List s/p R knee replacement HTN Mixed hyperlipidemia Discharge Disposition: Home SNF Discharge Will this Physician continue t: No Discharge Instruct/Medications Diet: Cardiac 2g Na,low cholest Activity: No Restrictions, As Tolerated Follow Up/Referral: Orthopedic surgery 1-2 weeks Medications: [place] as needed Resume the home meds Discharge Statement: "Patient was advised to return to the ER or call 911 if any headaches, dizziness, shortness of breath, chest pain, abdominal pain, bleeding, fevers, or worsening of medical condition. Patient was counseled about treatment plan, medications, possible side effects, patientverbalized understanding. All questions were answered to the best of my ability. This discharge took greater then 30 minutes in planning, reviewing documentation, counseling the patient, and discussing with other team members." ASSESSMENT ASSESSMENT Assessment s/p R knee replacement HTN Mixed hyperlipidemia Date of Service: January 17, 2025 Billing Provider: BRITTANY QURESHI MD Common Visit Codes: [id number] DISCH DAY >30min BRITTANY QURESHI MD January 17, 2025 15:09
[2025-01-17 17:00] VITALS: BP 125/105; PULSE 99; RESP 17; TEMP 99; O2SAT 98
== END 2025-01-17 19:55 | disposition home health service (06) | DRG 470 ==
LOC: SUR 08:11 → OVERFLOW 13:10 → TELE-WESTW 14:36 → WEST WING 01-15 23:51
PROVIDERS: ADMIT Internal Medicine Geriatric Medicine; ATTEND Internal Medicine Geriatric Medicine
PROC: 0SRC0J9 Replacement of Right Knee Joint with Synthetic Substitute, Cemented, Open Approach (ICD-10-PCS; principal; 2025-01-14 10:34)
DX: M17.11 Unilateral primary osteoarthritis, right knee (principal); I10 Essential (primary) hypertension; M81.0 Age-related osteoporosis without current pathological fracture; E78.00 Pure hypercholesterolemia, unspecified; Z82.49 Family history of ischemic heart disease and other diseases of the circulatory system; Z83.3 Family history of diabetes mellitus; Z79.899 Other long term (current) drug therapy; E78.2 Mixed hyperlipidemia
CPT/HCPCS: 36415; 73562; 80053; 81001; 85014; 85018; 85025; 86803; 86850; 86900; 86901; 87340; 97110; 97116; 97163; 97530; G0378; J0131; J1100; J1885; J2405; J2704; J3490